=== PATIENT | male | born 1930 | race Caucasian/White ===

== ENCOUNTER 2019-04-07 16:33 | Emergency (ER) | payer OTHER ==
[~2019-04-07] VITALS: Ht 180.3 cm; Wt 916.3 kg
[2019-04-07 16:46] VITALS: Ht 180.3 cm; Wt 916.3 kg
[2019-04-07 17:25] LABS: BASOPHIL % 0.2 % (0-2); PLATELET COUNT 225 x10^3mcL (130-400); RED CELL DISTRIBUTION WIDTH 14.3 % (11.5-14.5)
[2019-04-07 17:52] LABS: CALCIUM 8.7 mg/dL (8.5-10.1); CARBON DIOXIDE 23.6 mmol/L (21-32); CHLORIDE SERUM 91 mmol/L (98-107); CREATININE SERUM 1.3 mg/dL (0.7-1.3); GLUCOSE SERUM 142 mg/dL (74-106); POTASSIUM SERUM 4.3 mmol/L (3.5-5.1); SODIUM SERUM 126 mmol/L (136-145)
[2019-04-07 17:53] LABS: T3 TOTAL 0.69 ng/mL
[2019-04-07 17:56] LABS: ALKALINE PHOSPHATASE 94 U/L (46-116); ALT/SGPT 23 U/L (16-63); AST/SGOT 22 U/L (15-37); TOTAL PROTEIN, SERUM 8.1 g/dL (6.4-8.2)
[2019-04-07 17:59] LABS: ALBUMIN 2.7 g/dL (3.4-5.0)
[2019-04-07 18:16] LABS: C REACTIVE PROTEIN 17.7 mg/dL (<=0.9)
[2019-04-07 18:17] LABS: FREE T4 1.35 ng/dL (0.76-1.46); FREE THYROXINE INDEX 2.6 ug/dL (1.4-4.5)
[2019-04-07 18:24] LABS: microscopic required? YES; urine erythrocyte TRACE (NEGATIVE)
[2019-04-07 18:44] LABS: ERYTHROCYTE SED RATE 90 mm/hr (0-20)
[2019-04-07] MEDS ORDERED: GLIPIZIDE2.5 M1 (19:19)
[2019-04-07] MEDS ORDERED: LOSARTAN POTASS25 M1 PO (19:19)
[2019-04-07] MEDS ORDERED: DOXYCYCLINE HY100 M2 PO (19:20)
[2019-04-07] MEDS ORDERED: BENZONATATE200 MG PO (19:20)
[2019-04-07] MEDS ORDERED: ALBUTEROL1.25 MG/3 IH (19:21)
[2019-04-07 21:31] VITALS: BP 151/76
== END 2019-04-07 21:31 | disposition short-term general hospital (02) ==
LOC: ED 16:33
PROVIDERS: Specialist
DX: J18.1 Lobar pneumonia, unspecified organism (principal); R09.02 Hypoxemia; E86.0 Dehydration; E87.1 Hypo-osmolality and hyponatremia; I10 Essential (primary) hypertension; E11.9 Type 2 diabetes mellitus without complications
CPT/HCPCS: 36600; 84439; J0456; J0696; J7030; J7050; J7613; J7644; Q0092